=== PATIENT | female | born 1930 | race Caucasian/White ===

== ENCOUNTER 2019-04-19 11:12 | Inpatient (IN) | payer MEDICARE, OTHER ==
[~2019-04-19] VITALS: Ht 165.1 cm; Wt 70.9 kg
[~2019-04-19 11:12] MED LIST: ERGO500014 PO; PRAM0.129 PO; SULF-14 PO; TRIA1TAB3 PO
[2019-04-19] MEDS ORDERED: fentaNYL/PF 50MCG/1 ML 2ML syringe IV ONE (12:15)
[2019-04-19 12:36] LABS: BASOPHILS # (AUTO) 0.1 X10'3 (0-0.2); BASOPHILS % (AUTO) 1.2 % (0-1); EOSINOPHILS # (AUTO) 0.1 X10'3 (0-0.9); EOSINOPHILS % (AUTO) 1.3 % (0-6); HEMATOCRIT 34.1 % (35.0-45.0); HEMOGLOBIN 11.2 g/dl (12.0-16.0); LYMPHOCYTES % (AUTO) 13.3 % (21-51); MEAN CORPUSCULAR HEMOGLOBIN 29.9 PG (27.0-31.0); MEAN CORPUSCULAR HGB CONC 32.8 g/dL (33.0-36.5); MEAN CORPUSCULAR VOLUME 91.1 FL (78-98); MEAN PLATELET VOLUME 8.6 FL (7.4-10.4); MONOCYTES # (AUTO) 0.4 X10'3 (0-0.9); MONOCYTES % (AUTO) 5.7 % (2-12); NEUTROPHILS # (AUTO) 5.8 X10'3 (1.8-7.7); NEUTROPHILS % (AUTO) 78.5 % (42-75); PLATELET COUNT 196 X10'3 (140-440); RED BLOOD COUNT 3.74 X10'6 (4.20-5.60); RED CELL DISTRIBUTION WIDTH 15.1 % (11.5-14.5); WHITE BLOOD COUNT 7.4 X10'3 (4.5-11.0)
[2019-04-19 12:49] LABS: ALANINE AMINOTRANSFERASE 13 U/L (12-78); ALBUMIN 3.1 G/DL (3.4-5.0); ALBUMIN/GLOBULIN RATIO 0.9 (1.1-1.5); ALKALINE PHOSPHATASE 77 IU/L (46-116); ANION GAP 6 (8-16); ASPARTATE AMINO TRANSFERASE 14 U/L (10-37); BILIRUBIN,TOTAL 0.7 MG/DL (0.1-1.0); BLOOD UREA NITROGEN 16 MG/DL (7-18); BUN/CREATININE RATIO 15.8 (6.6-38.0); CALCIUM 10.5 MG/DL (8.5-10.1); CHLORIDE 109 MMOL/L (99-107); CREATININE 1.01 MG/DL (0.40-0.90); GLUCOSE 106 MG/DL (70-104); POTASSIUM 3.7 MMOL/L (3.5-5.1); SODIUM 145 MMOL/L (135-145); TOTAL CARBON DIOXIDE 29.9 MMOL/L (24-32); TOTAL PROTEIN 6.7 G/DL (6.4-8.2); eGFR 52 ML/MIN
--- NOTE | 2019-04-19 12:58 | NUR ---
pt to ct
[2019-04-19] MEDS ORDERED: mag hydrox/Alum hydrox/simeth 30ml oral suspension PO PRN (14:05)
[2019-04-19] MEDS ORDERED: ondansetron/PF 4mg/2ml inj IV PRN (14:05)
[2019-04-19] MEDS ORDERED: acetaminophen 325mg tablet PO PRN (14:05)
[2019-04-19] MEDS ORDERED: magnesium hydroxide 30ml (MOM) UD suspension PO PRN (14:05)
[2019-04-19 14:25] LABS: CLARITY,URINE CLOUDY (Clear); COLOR,URINE YELLOW (Yellow); GLUCOSE, URINE NEGATIVE (Neg); KETONES,URINE NEGATIVE (Neg); LEUKOCYTE ESTERASE ,URINE NEGATIVE (Neg); NITRITES, URINE NEGATIVE (Neg); OCCULT BLOOD,URINE NEGATIVE (Neg); PH,URINE 5.5 (4.8-8.0); PROTEIN,URINE NEGATIVE (Neg); UA COLLECTION TYPE FOLEY CATH; UROBILINOGEN,URINE 0.2 E.U/dL (0.2-1.0)
[2019-04-19] MEDS: normal saline 1000ml 1,000 ML IV SCH ×2 (14:35→15:33)
[2019-04-19 14:39] LABS: BACTERIA,URINE 4+ /HPF (Neg); MUCUS STRANDS NONE SEEN /LPF (Neg); RBC,URINE NONE SEEN /HPF (0-2); SQUAMOUS EPITHELIAL CELL,UR FEW /LPF (FEW); WBC CLUMPS,URINE FEW /HPF (NEGATIVE)
[2019-04-19 14:40] LABS: HYALINE CASTS 0-3 /LPF (NEGATIVE)
--- NOTE | 2019-04-19 14:47 | NUR ---
FAMILY WENT HOME TO GET PT'S MEDICATION LIST.
[2019-04-19] MEDS: HYDROcodone/acetaminophen 5mg/325mg tablet PO PRN ×2 (14:49→21:14)
[2019-04-19 15:42] VITALS: BP 139/77
[2019-04-19] MEDS ORDERED: ringers solution, lacted 1,000 ML IV ONE (16:19)
[2019-04-19] MEDS: HYDROmorphone inj. 0.5 MG/0.5 ML DISP.SYRIN IV PRN (17:06)
[2019-04-19 17:28] VITALS: BP 121/76
[2019-04-19 18:00] VITALS: BP 149/70
[2019-04-19] MEDS: heparin, porcine 5000 units/ml vial SQ SCH (20:48)
[2019-04-19 22:00] VITALS: BP 153/68
[2019-04-20] VITALS (15 sets, daily range): BP systolic 109–171; BP diastolic 48–70
[2019-04-20] MEDS: HYDROmorphone inj. 0.5 MG/0.5 ML DISP.SYRIN IV PRN ×3 (01:16→17:26)
[2019-04-20] MEDS: HYDROcodone/acetaminophen 5mg/325mg tablet PO PRN ×2 (03:52→15:12)
[2019-04-20] MEDS: normal saline 1000ml 1,000 ML IV SCH ×2 (03:53→13:15)
[2019-04-20 05:50] LABS: BASOPHILS # (AUTO) 0.1 X10'3 (0-0.2); BASOPHILS % (AUTO) 1.1 % (0-1); EOSINOPHILS # (AUTO) 0.1 X10'3 (0-0.9); EOSINOPHILS % (AUTO) 0.9 % (0-6); HEMATOCRIT 32.4 % (35.0-45.0); HEMOGLOBIN 10.8 g/dl (12.0-16.0); LYMPHOCYTES % (AUTO) 12.3 % (21-51); MEAN CORPUSCULAR HEMOGLOBIN 30.2 PG (27.0-31.0); MEAN CORPUSCULAR HGB CONC 33.2 g/dL (33.0-36.5); MEAN CORPUSCULAR VOLUME 91.1 FL (78-98); MEAN PLATELET VOLUME 8.9 FL (7.4-10.4); MONOCYTES # (AUTO) 0.7 X10'3 (0-0.9); NEUTROPHILS # (AUTO) 6.6 X10'3 (1.8-7.7); NEUTROPHILS % (AUTO) 77.7 % (42-75); PLATELET COUNT 195 X10'3 (140-440); RED BLOOD COUNT 3.56 X10'6 (4.20-5.60); WHITE BLOOD COUNT 8.5 X10'3 (4.5-11.0)
[2019-04-20 05:51] LABS: ALBUMIN 2.8 G/DL (3.4-5.0); ANION GAP 7 (8-16); BLOOD UREA NITROGEN 13 MG/DL (7-18); BUN/CREATININE RATIO 15.9 (6.6-38.0); CALCIUM 10.2 MG/DL (8.5-10.1); CHLORIDE 110 MMOL/L (99-107); CREATININE 0.82 MG/DL (0.40-0.90); GLUCOSE 106 MG/DL (70-104); POTASSIUM 3.6 MMOL/L (3.5-5.1); SODIUM 143 MMOL/L (135-145); TOTAL CARBON DIOXIDE 25.9 MMOL/L (24-32); eGFR 66 ML/MIN
--- NOTE | 2019-04-20 06:15 | NUR ---
Patient in room ORTHO 4023. I have received report from YANG KENNEDY and had the opportunity to ask questions and assume patient care.
--- NOTE | 2019-04-20 06:23 | NUR ---
Problems reprioritized. Patient report given, questions answered & plan of care reviewed with MARCIA ATKINSON.
[2019-04-20] MEDS: heparin, porcine 5000 units/ml vial SQ SCH (07:15)
[2019-04-20] MEDS ORDERED: POTA10TA15 PO (10:50)
[2019-04-20] MEDS ORDERED: ipratropium/albuterol 3ml nebule NEB PRN ×2 (10:50→10:53)
[2019-04-20] MEDS ORDERED: ASPI-611 PO (11:31)
[2019-04-20] MEDS ORDERED: MELA3TAB64 PO (11:32)
[2019-04-20] MEDS ORDERED: LOSA50TA64 PO (11:32)
[2019-04-20] MEDS ORDERED: PRAM0.253 PO (11:36)
[2019-04-20] MEDS ORDERED: ceFAZolin 1GM/D5W- ADD-VANTAGE 50 ML IV ONE (12:30)
--- NOTE | 2019-04-20 13:00 | NUR ---
PATIENT TO THE OR.
[2019-04-20] MEDS ORDERED: fentaNYL/PF 50MCG/1 ML 2ML syringe ONE (13:15)
[2019-04-20] MEDS ORDERED: propofol inj 20 ML IV ONE (13:15)
[2019-04-20] MEDS ORDERED: ePHEDrine 50MG/ML INJ. ONE (13:32)
[2019-04-20] MEDS ORDERED: ringers solution, lacted 1,000 ML IV SCH (13:41)
[2019-04-20] MEDS ORDERED: morphine 4 MG/ML inj SYRINge IV PRN ×2 (13:45)
[2019-04-20] MEDS ORDERED: proCHLORperazine 10 MG/2 ml inj IV PRN (13:45)
[2019-04-20] MEDS ORDERED: ondansetron/PF 4mg/2ml inj IV PRN (13:45)
[2019-04-20] MEDS ORDERED: meperidine/PF 25mg/ml syringe IV PRN ×3 (13:45)
--- NOTE | 2019-04-20 13:57 | NUR ---
Received from OR via ORTHO BED WITH [facility] , accompanied by Anesthesiologist ASHER and report given by Anesthesiolgist. 20G PIV IN LEFT UR RUNNING LR AT 100. DENIES PAIN. 10L MASK ON WITH 98% SATURATIONS. RIGHT HIP DRESSING IS SPOTTED ON BOTH SITES WITH COVERED OP SITE IN PLACE. RIGHT FOOT IS PWD AND HAS + CAP REFILL VSSGLASSES AT HEAD OF BED. Addendum: 04/20/19 at 1407 by Pramod Campuzano RN, RN Amended: Links added.
--- NOTE | 2019-04-20 13:58 | NUR ---
PAGER ID: [phone] MESSAGE: [place] [id number] RE: OLIVER [id number] FYI GRAM NEG RODS IN URINE
--- NOTE | 2019-04-20 14:27 | NUR ---
ALL CRITERIA FOR TRANSFER TO THE FLOOR HAS BEEN ACHIEVED. VSS. BED LOW, CALL LIGHT AND VS. SET IN PLACE. RN PRESENT TO ACCEPT CARE. PATIENT RESTING COMFORTABLY IN BED. BELONGINGS SENT WITH PATIENT. DRESSINGS CDI. VSS. DENIES PAIN. REPORT GIVEN TO SEJAL. PRINTED CIRCUIT BOARDS BEVELER TRANSPORTED PATIENT TO ROOM. Addendum: 04/20/19 at 1438 by Pramod Campuzano RN, RN Amended: Links added.
--- NOTE | 2019-04-20 14:30 | NUR ---
ASSUMED CARE, RECEIVED REPORT FROM RAUL KENNEDY, POST OP VITALS STARTED, PATIENT RESTING COMFORTABLY, FAMILY AT BEDSIDE.
--- NOTE | 2019-04-20 15:12 | NUR ---
SOME DRAINAGE ON GAUZE AT BOTH INCISION SITES. MARKED AND WILL CONTINUE TO MONITOR.
[2019-04-20] MEDS: ceFAZolin 1GM/D5W- ADD-VANTAGE 50 ML IV SCH (16:00)
--- NOTE | 2019-04-20 16:45 | NUR ---
FAMILY MEMBER REPORTS SURGERY DRESSING CAME OFF THAT IT WAS STUCK TO THE BED. REPLACED THE DRESSING IT WAS, GAUZE WITH TEGADERM. COLEMAN WERE INTACT, NO DRAINAGE. WILL CONTINUE TO MONITOR.
--- NOTE | 2019-04-20 18:00 | NUR ---
Problems reprioritized. Patient report given, questions answered & plan of care reviewed with YANG KENNEDY.
--- NOTE | 2019-04-20 18:37 | NUR ---
Patient in room ORTHO 4023. I have received report from MARCIA ATKINSON and had the opportunity to ask questions and assume patient care.
[2019-04-20] MEDS ORDERED: non-formulary drug (Aspirin (Aspir 81) 1 TAB) PO SCH (20:00)
[2019-04-20] MEDS: losartan 50mg tablet PO SCH (20:05)
[2019-04-20] MEDS: Melatonin 3mg tablet PO SCH (20:14)
[2019-04-20] MEDS: aspirin 81mg tablet.DR PO SCH (20:14)
[2019-04-20] MEDS: pramipexole 0.25mg tablet PO SCH (20:15)
[2019-04-21] MEDS: ceFAZolin 1GM/D5W- ADD-VANTAGE 50 ML IV SCH (00:51)
[2019-04-21 01:52] VITALS: BP 108/53
[2019-04-21] MEDS: HYDROcodone/acetaminophen 5mg/325mg tablet PO PRN (05:27)
[2019-04-21 06:00] VITALS: BP 111/56
[2019-04-21 06:04] LABS: BASOPHILS # (AUTO) 0.1 X10'3 (0-0.2); BASOPHILS % (AUTO) 0.7 % (0-1); EOSINOPHILS # (AUTO) 0.1 X10'3 (0-0.9); EOSINOPHILS % (AUTO) 1.5 % (0-6); HEMATOCRIT 28.8 % (35.0-45.0); HEMOGLOBIN 9.6 g/dl (12.0-16.0); LYMPHOCYTES # (AUTO) 0.9 X10'3 (1.1-4.8); LYMPHOCYTES % (AUTO) 9.4 % (21-51); MEAN CORPUSCULAR HEMOGLOBIN 30.4 PG (27.0-31.0); MEAN CORPUSCULAR HGB CONC 33.3 g/dL (33.0-36.5); MEAN CORPUSCULAR VOLUME 91.3 FL (78-98); MEAN PLATELET VOLUME 8.7 FL (7.4-10.4); MONOCYTES % (AUTO) 9.9 % (2-12); NEUTROPHILS # (AUTO) 7.8 X10'3 (1.8-7.7); NEUTROPHILS % (AUTO) 78.5 % (42-75); PLATELET COUNT 175 X10'3 (140-440); RED BLOOD COUNT 3.15 X10'6 (4.20-5.60); RED CELL DISTRIBUTION WIDTH 14.8 % (11.5-14.5); WHITE BLOOD COUNT 9.9 X10'3 (4.5-11.0)
[2019-04-21 06:20] LABS: ALBUMIN 2.5 G/DL (3.4-5.0); ANION GAP 6 (8-16); BLOOD UREA NITROGEN 14 MG/DL (7-18); BUN/CREATININE RATIO 14.1 (6.6-38.0); CALCIUM 9.8 MG/DL (8.5-10.1); CHLORIDE 108 MMOL/L (99-107); CREATININE 0.99 MG/DL (0.40-0.90); GLUCOSE 110 MG/DL (70-104); POTASSIUM 3.5 MMOL/L (3.5-5.1); SODIUM 142 MMOL/L (135-145); eGFR 53 ML/MIN
--- NOTE | 2019-04-21 06:36 | NUR ---
Problems reprioritized. Patient report given, questions answered & plan of care reviewed with MARCIA FOURNIER.
[2019-04-21] MEDS: enoxaparin 40mg/0.4ml syringe SQ SCH (09:18)
[2019-04-21 10:00] VITALS: BP 94/47
[2019-04-21] MEDS: ciprofloxacin 250mg tablet PO SCH ×2 (12:17→19:46)
[2019-04-21 14:00] VITALS: BP 98/49
[2019-04-21 18:00] VITALS: BP 90/51
[2019-04-21] MEDS: pramipexole 0.25mg tablet PO SCH (19:45)
[2019-04-21] MEDS: aspirin 81mg tablet.DR PO SCH (19:45)
[2019-04-21] MEDS: Melatonin 3mg tablet PO SCH (19:46)
[2019-04-21] MEDS: lactobacillus rhamnosus 10,000 MMU CELLS/CAPSULE PO SCH (19:46)
[2019-04-21] MEDS: losartan 50mg tablet PO SCH (19:54)
[2019-04-21 22:00] VITALS: BP 101/55
[2019-04-22] MEDS: HYDROcodone/acetaminophen 5mg/325mg tablet PO PRN ×2 (04:48→13:32)
[2019-04-22 06:00] VITALS: BP 111/57
[2019-04-22 06:34] LABS: BASOPHILS # (AUTO) 0.1 X10'3 (0-0.2); BASOPHILS % (AUTO) 0.5 % (0-1); EOSINOPHILS # (AUTO) 0.1 X10'3 (0-0.9); EOSINOPHILS % (AUTO) 1.2 % (0-6); HEMATOCRIT 26.1 % (35.0-45.0); HEMOGLOBIN 8.7 g/dl (12.0-16.0); LYMPHOCYTES # (AUTO) 0.8 X10'3 (1.1-4.8); LYMPHOCYTES % (AUTO) 8.7 % (21-51); MEAN CORPUSCULAR HEMOGLOBIN 30.4 PG (27.0-31.0); MEAN CORPUSCULAR HGB CONC 33.1 g/dL (33.0-36.5); MEAN CORPUSCULAR VOLUME 91.7 FL (78-98); MEAN PLATELET VOLUME 9.2 FL (7.4-10.4); MONOCYTES # (AUTO) 0.9 X10'3 (0-0.9); MONOCYTES % (AUTO) 9.5 % (2-12); NEUTROPHILS # (AUTO) 7.8 X10'3 (1.8-7.7); NEUTROPHILS % (AUTO) 80.1 % (42-75); PLATELET COUNT 167 X10'3 (140-440); RED BLOOD COUNT 2.85 X10'6 (4.20-5.60); RED CELL DISTRIBUTION WIDTH 14.7 % (11.5-14.5); WHITE BLOOD COUNT 9.7 X10'3 (4.5-11.0)
--- NOTE | 2019-04-22 06:35 | NUR ---
Problems reprioritized. Patient report given, questions answered & plan of care reviewed with MARCIA MCDONOUGH.
[2019-04-22 06:41] LABS: ALBUMIN 2.3 G/DL (3.4-5.0); ANION GAP 6 (8-16); BLOOD UREA NITROGEN 20 MG/DL (7-18); BUN/CREATININE RATIO 16.3 (6.6-38.0); CALCIUM 10.3 MG/DL (8.5-10.1); CHLORIDE 108 MMOL/L (99-107); CREATININE 1.23 MG/DL (0.40-0.90); GLUCOSE 106 MG/DL (70-104); POTASSIUM 3.9 MMOL/L (3.5-5.1); SODIUM 142 MMOL/L (135-145); TOTAL CARBON DIOXIDE 27.9 MMOL/L (24-32); eGFR 41 ML/MIN
--- NOTE | 2019-04-22 06:53 | NUR ---
Patient in room ORTHO 4023. I have received report from Amanda KENNEDY and had the opportunity to ask questions and assume patient care.
[2019-04-22] MEDS: enoxaparin 40mg/0.4ml syringe SQ SCH (08:09)
[2019-04-22] MEDS: lactobacillus rhamnosus 10,000 MMU CELLS/CAPSULE PO SCH (08:10)
[2019-04-22] MEDS: ciprofloxacin 250mg tablet PO SCH (08:10)
[2019-04-22 09:53] VITALS: BP 109/46
--- NOTE | 2019-04-22 12:59 | NUR ---
Report called to Yas KENNEDY at [facility]
[2019-04-22] MEDS: normal saline 1000ml 1,000 ML IV SCH (13:15)
--- NOTE | 2019-04-22 14:00 | NUR ---
Patient discharged with all belongings via medical transport, family at bedside and was aware of transfer, patient stable for transport
== END 2019-04-22 14:00 | DRG 481 ==
LOC: ER 11:12 → ORTHO 4S 15:00 → CMPBEDREQ 04-20 19:57
PROVIDERS: ADMIT Family Medicine; ATTEND Family Medicine
PROC: 0QS606Z Reposition Right Upper Femur with Intramedullary Internal Fixation Device, Open Approach (ICD-10-PCS; principal; 2019-04-20 13:12)
DX: S72.141A Displaced intertrochanteric fracture of right femur, initial encounter for closed fracture (principal); N39.0 Urinary tract infection, site not specified; D62 Acute posthemorrhagic anemia; M81.0 Age-related osteoporosis without current pathological fracture; W01.0XXA Fall on same level from slipping, tripping and stumbling without subsequent striking against object, initial encounter; G25.81 Restless legs syndrome; J43.9 Emphysema, unspecified; B96.20 Unspecified Escherichia coli [E. coli] as the cause of diseases classified elsewhere; I10 Essential (primary) hypertension; F17.210 Nicotine dependence, cigarettes, uncomplicated; Z86.73 Personal history of transient ischemic attack (TIA), and cerebral infarction without residual deficits; Z90.710 Acquired absence of both cervix and uterus; Y93.89 Activity, other specified; Y92.89 Other specified places as the place of occurrence of the external cause; Y99.8 Other external cause status; Z88.5 Allergy status to narcotic agent; Z90.49 Acquired absence of other specified parts of digestive tract; Z79.82 Long term (current) use of aspirin; Z71.6 Tobacco abuse counseling
CPT/HCPCS: 36415; 71045; 71250; 73502; 76000; 80048; 80053; 81001; 82948; 85025; 85610; 87077; 87081; 87088; 87186; 93005; 94640; 94760; 96361; 96374; 97110; 97116; 97161; 97530; 99285; A4618; A6222; A6258; A6449; A7000; C1713; G0378; J0690; J1170; J1644; J1650; J2405; J2704; J3010; J7030; J7120

== ENCOUNTER 2019-07-07 18:23 | Inpatient (IN) | payer MEDICARE, OTHER ==
[~2019-07-07] VITALS: Ht 165.1 cm; Wt 67.7 kg
[~2019-07-07 18:23] MED LIST changes: +ASPI-611 PO; -ERGO500014 PO; +LOSA50TA64 PO; +MELA3TAB64 PO; -PRAM0.129 PO; +PRAM0.253 PO; -SULF-14 PO; -TRIA1TAB3 PO
[2019-07-07] MEDS ORDERED: ipratropium/albuterol 3ml nebule NEB ONE (18:35)
[2019-07-07] MEDS ORDERED: normal saline 1000ML IV soln IVB ONE (18:35)
[2019-07-07] MEDS ORDERED: methylPREDNISolone sod succ 125mg/2ml vial IV ONE (18:35)
[2019-07-07] MEDS ORDERED: azithromycin/NS 500mg/250ml 250 ML IV ONE (18:50)
[2019-07-07] MEDS ORDERED: CefTRIAXone 2gm/D5W 50ml 50 ML IV ONE (18:50)
[2019-07-07 19:01] LABS: ABG BASE EXCESS 3.9 mmol/L (-2.0-3.0); ABG HCO3 30.7 mmol/L (22.0-26.0); ABG OXYGEN SATURATION 98.5 % (95-98); ABG PH (T) 7.343 (7.350-7.450); ABG PO2 (T) 135.4 mmHg (83-108); ALLEN'S TEST Positive; FCOHb 1.1 % (0.5-1.5); FLOW 6 L/min; FMetHb 0.2 % (0.3-1.12); FO2Hb 97.2 % (94-100); PATIENT TEMPERATURE 37.3; TOTAL HEMOGLOBIN 11.4 G/dl (12.0-16.0)
[2019-07-07 19:07] LABS: BASOPHILS # (AUTO) 0.1 X10'3 (0-0.2); BASOPHILS % (AUTO) 0.6 % (0-1); EOSINOPHILS # (AUTO) 0.2 X10'3 (0-0.9); EOSINOPHILS % (AUTO) 1.3 % (0-6); HEMATOCRIT 32.9 % (35.0-45.0); HEMOGLOBIN 10.7 g/dl (12.0-16.0); LYMPHOCYTES # (AUTO) 1.8 X10'3 (1.1-4.8); LYMPHOCYTES % (AUTO) 15.8 % (21-51); MEAN CORPUSCULAR HEMOGLOBIN 29.2 PG (27.0-31.0); MEAN CORPUSCULAR HGB CONC 32.4 g/dL (33.0-36.5); MEAN CORPUSCULAR VOLUME 90.2 FL (78-98); MEAN PLATELET VOLUME 8.8 FL (7.4-10.4); MONOCYTES # (AUTO) 0.8 X10'3 (0-0.9); MONOCYTES % (AUTO) 6.9 % (2-12); NEUTROPHILS # (AUTO) 8.5 X10'3 (1.8-7.7); NEUTROPHILS % (AUTO) 75.4 % (42-75); PLATELET COUNT 256 X10'3 (140-440); RED BLOOD COUNT 3.65 X10'6 (4.20-5.60); RED CELL DISTRIBUTION WIDTH 14.4 % (11.5-14.5); WHITE BLOOD COUNT 11.3 X10'3 (4.5-11.0)
[2019-07-07 19:14] LABS: ALANINE AMINOTRANSFERASE 13 U/L (12-78); ALBUMIN 3.2 G/DL (3.4-5.0); ALBUMIN/GLOBULIN RATIO 0.8 (1.1-1.5); ALKALINE PHOSPHATASE 118 IU/L (46-116); ANION GAP 8 (8-16); ASPARTATE AMINO TRANSFERASE 14 U/L (10-37); BILIRUBIN,TOTAL 0.5 MG/DL (0.1-1.0); BLOOD UREA NITROGEN 14 MG/DL (7-18); BUN/CREATININE RATIO 14.7 (6.6-38.0); CALCIUM 11.1 MG/DL (8.5-10.1); CHLORIDE 103 MMOL/L (99-107); CREATININE 0.95 MG/DL (0.40-0.90); GLUCOSE 151 MG/DL (70-104); POTASSIUM 3.4 MMOL/L (3.5-5.1); SODIUM 142 MMOL/L (135-145); TOTAL CARBON DIOXIDE 30.7 MMOL/L (24-32); TOTAL PROTEIN 7.4 G/DL (6.4-8.2); eGFR 56 ML/MIN
[2019-07-07] MEDS ORDERED: acetaminophen 325mg tablet PO PRN (19:30)
[2019-07-07] MEDS ORDERED: magnesium hydroxide 30ml (MOM) UD suspension PO PRN (19:30)
[2019-07-07] MEDS ORDERED: morphine 2 MG/ML inj. syringe IV PRN ×2 (19:30)
[2019-07-07] MEDS ORDERED: ondansetron/PF 4mg/2ml inj IV PRN (19:30)
[2019-07-07] MEDS ORDERED: mag hydrox/Alum hydrox/simeth 30ml oral suspension PO PRN (19:30)
[2019-07-07 21:00] VITALS: BP 122/56
[2019-07-07] MEDS ORDERED: PRAM0.129 PO (21:39)
--- NOTE | 2019-07-07 22:24 | NUR ---
Patient in room JOSE 357. I have received report from MARCIA Hollingsworth and had the opportunity to ask questions and assume patient care. Addendum: 07/07/19 at 2225 by Iman Sanderson RN Amended: Links added.
--- NOTE | 2019-07-07 22:36 | NUR ---
Patient in room JOSE 357. I have received report from MARCIA Becerra and had the opportunity to ask questions and assume patient care. Pt. brought up by roro by staff. Pt soaking wet with urine upon arrival to unit. Addendum: 07/07/19 at 2238 by Iman Sanderson RN Amended: Links added.
[2019-07-08] VITALS: BP 112/54
--- NOTE | 2019-07-08 01:14 | NUR ---
large amount of incontinent urine. adult diaper soaked through clothes and bed. Addendum: 07/08/19 at 0115 by Iman Sanderson RN Amended: Links added.
--- NOTE | 2019-07-08 06:22 | NUR ---
Problems reprioritized. Patient report given, questions answered & plan of care reviewed with MARCIA Elizalde. Addendum: 07/08/19 at 0622 by Iman Sanderson RN Amended: Links added.
[2019-07-08 06:23] LABS: BASOPHILS % (AUTO) 0.1 % (0-1); EOSINOPHILS % (AUTO) 0 % (0-6); HEMATOCRIT 29.5 % (35.0-45.0); HEMOGLOBIN 9.6 g/dl (12.0-16.0); LYMPHOCYTES # (AUTO) 0.5 X10'3 (1.1-4.8); LYMPHOCYTES % (AUTO) 3.9 % (21-51); MEAN CORPUSCULAR HEMOGLOBIN 29.3 PG (27.0-31.0); MEAN CORPUSCULAR HGB CONC 32.7 g/dL (33.0-36.5); MEAN CORPUSCULAR VOLUME 89.6 FL (78-98); MONOCYTES # (AUTO) 0.1 X10'3 (0-0.9); MONOCYTES % (AUTO) 0.6 % (2-12); NEUTROPHILS # (AUTO) 12.4 X10'3 (1.8-7.7); NEUTROPHILS % (AUTO) 95.4 % (42-75); PLATELET COUNT 215 X10'3 (140-440); RED BLOOD COUNT 3.29 X10'6 (4.20-5.60); RED CELL DISTRIBUTION WIDTH 14.1 % (11.5-14.5)
[2019-07-08 06:40] LABS: ALBUMIN 2.7 G/DL (3.4-5.0); ANION GAP 9 (8-16); BLOOD UREA NITROGEN 14 MG/DL (7-18); BUN/CREATININE RATIO 19.2 (6.6-38.0); CALCIUM 11.4 MG/DL (8.5-10.1); CHLORIDE 107 MMOL/L (99-107); CREATININE 0.73 MG/DL (0.40-0.90); GLUCOSE 160 MG/DL (70-104); POTASSIUM 4.1 MMOL/L (3.5-5.1); SODIUM 143 MMOL/L (135-145); TOTAL CARBON DIOXIDE 27.1 MMOL/L (24-32); eGFR 75 ML/MIN
[2019-07-08 08:00] VITALS: BP 123/54
[2019-07-08] MEDS ORDERED: pramipexole 0.25mg tablet PO SCH (08:00)
[2019-07-08] MEDS: furosemide 20MG tablet PO SCH (08:45)
[2019-07-08] MEDS: methylPREDNISolone sod succ 125mg/2ml vial IV SCH ×2 (08:46→22:00)
[2019-07-08] MEDS: enoxaparin 40mg/0.4ml syringe SUBCUT SCH (08:48)
[2019-07-08 11:00] VITALS: BP 142/64
[2019-07-08] MEDS: CefTRIAXone/D5W-Rocephin 1gm 50 ML IV SCH (12:20)
--- NOTE | 2019-07-08 18:58 | NUR ---
Patient in room JOSE 357. I have received report from MARCIA Elizalde and had the opportunity to ask questions and assume patient care.
--- NOTE | 2019-07-08 19:24 | NUR ---
Problems reprioritized. Patient report given, questions answered & plan of care reviewed with Anastacia Martin RN. Pt doing well, eating dinner, no current issues.
[2019-07-08 20:00] VITALS: BP 141/63
[2019-07-08] MEDS: losartan 50mg tablet PO SCH (22:01)
[2019-07-08] MEDS: Melatonin 3mg tablet PO SCH (22:01)
[2019-07-08] MEDS: pramipexole 0.25mg tablet PO SCH (22:02)
[2019-07-08] MEDS: aspirin 81mg tab.chew PO SCH (22:02)
[2019-07-09] VITALS: BP 135/69
[2019-07-09 06:08] LABS: BASOPHILS % (AUTO) 0.2 % (0-1); EOSINOPHILS % (AUTO) 0 % (0-6); HEMATOCRIT 30.4 % (35.0-45.0); LYMPHOCYTES # (AUTO) 0.7 X10'3 (1.1-4.8); LYMPHOCYTES % (AUTO) 5.5 % (21-51); MEAN CORPUSCULAR HEMOGLOBIN 29.4 PG (27.0-31.0); MONOCYTES # (AUTO) 0.3 X10'3 (0-0.9); MONOCYTES % (AUTO) 1.9 % (2-12); NEUTROPHILS # (AUTO) 12.6 X10'3 (1.8-7.7); NEUTROPHILS % (AUTO) 92.4 % (42-75); PLATELET COUNT 262 X10'3 (140-440); RED BLOOD COUNT 3.42 X10'6 (4.20-5.60); RED CELL DISTRIBUTION WIDTH 13.7 % (11.5-14.5); WHITE BLOOD COUNT 13.6 X10'3 (4.5-11.0)
--- NOTE | 2019-07-09 06:34 | NUR ---
Problems reprioritized. Patient report given, questions answered & plan of care reviewed with MARCIA Johnson.
--- NOTE | 2019-07-09 06:40 | NUR ---
Patient in room JOSE 357. I have received report from SELENA KENNEDY and had the opportunity to ask questions and assume patient care.
[2019-07-09 06:57] LABS: ALBUMIN 2.7 G/DL (3.4-5.0); ANION GAP 4 (8-16); BLOOD UREA NITROGEN 21 MG/DL (7-18); BUN/CREATININE RATIO 27.3 (6.6-38.0); CALCIUM 11.2 MG/DL (8.5-10.1); CHLORIDE 106 MMOL/L (99-107); CREATININE 0.77 MG/DL (0.40-0.90); GLUCOSE 144 MG/DL (70-104); POTASSIUM 4.4 MMOL/L (3.5-5.1); SODIUM 142 MMOL/L (135-145); TOTAL CARBON DIOXIDE 31.8 MMOL/L (24-32); eGFR 71 ML/MIN
[2019-07-09 07:00] LABS: D-DIMER 1.83 MG/L FEU (0-0.50)
[2019-07-09] MEDS: CefTRIAXone/D5W-Rocephin 1gm 50 ML IV SCH (07:52)
[2019-07-09] MEDS: furosemide 20MG tablet PO SCH (07:53)
[2019-07-09] MEDS: methylPREDNISolone sod succ 125mg/2ml vial IV SCH ×2 (07:53→20:11)
[2019-07-09] MEDS: enoxaparin 40mg/0.4ml syringe SUBCUT SCH (07:54)
[2019-07-09 08:15] VITALS: BP 129/61
--- NOTE | 2019-07-09 10:12 | NUR ---
wheezes audible when patient is sitting up and after coughing
--- NOTE | 2019-07-09 10:14 | NUR ---
Patient unsure of LBM, daughter states 07/06.
--- NOTE | 2019-07-09 10:23 | NUR ---
Patient unsure of oswaldo SQUIRES reports 07/06. Addendum: 07/09/19 at 1030 by Arlene BRUCE Amended: Links added.
--- NOTE | 2019-07-09 10:24 | NUR ---
chilo petersenck in place Addendum: 07/09/19 at 1030 by Arlene BRUCE Amended: Links added.
[2019-07-09] MEDS ORDERED: iohexol 350MG/ML 100ml bottle IV ONE (10:34)
[2019-07-09 11:00] VITALS: BP 149/70
--- NOTE | 2019-07-09 12:00 | NUR ---
Patient in room JOSE 357. I have received report from and had the opportunity to ask questions and assume patient care.
[2019-07-09 13:21] VITALS: BP 149/70
--- NOTE | 2019-07-09 18:05 | NUR ---
Patient in room JOSE 357. I have received report from Elizabeth KENNEDY and had the opportunity to ask questions and assume patient care.
--- NOTE | 2019-07-09 18:31 | NUR ---
PATIENT WENT FOR CTA today, see report. appears more comfortable. all cares given. Report given to Kartik KENNEDY
[2019-07-09 20:00] VITALS: BP 130/80
[2019-07-09] MEDS: aspirin 81mg tab.chew PO SCH (20:09)
[2019-07-09] MEDS: Melatonin 3mg tablet PO SCH (20:09)
[2019-07-09] MEDS: losartan 50mg tablet PO SCH (20:09)
[2019-07-09] MEDS: lactobacillus rhamnosus 10,000 MMU CELLS/CAPSULE PO SCH (20:09)
[2019-07-09] MEDS: pramipexole 0.25mg tablet PO SCH (20:16)
[2019-07-10] VITALS: BP 136/61
[2019-07-10 05:42] LABS: BASOPHILS % (AUTO) 0 % (0-1); EOSINOPHILS % (AUTO) 0 % (0-6); HEMATOCRIT 33.6 % (35.0-45.0); HEMOGLOBIN 10.9 g/dl (12.0-16.0); LYMPHOCYTES # (AUTO) 0.6 X10'3 (1.1-4.8); LYMPHOCYTES % (AUTO) 5.5 % (21-51); MEAN CORPUSCULAR HEMOGLOBIN 29.2 PG (27.0-31.0); MEAN CORPUSCULAR HGB CONC 32.5 g/dL (33.0-36.5); MEAN CORPUSCULAR VOLUME 89.9 FL (78-98); MEAN PLATELET VOLUME 8.8 FL (7.4-10.4); MONOCYTES # (AUTO) 0.2 X10'3 (0-0.9); MONOCYTES % (AUTO) 1.9 % (2-12); NEUTROPHILS # (AUTO) 10.3 X10'3 (1.8-7.7); NEUTROPHILS % (AUTO) 92.6 % (42-75); PLATELET COUNT 276 X10'3 (140-440); RED BLOOD COUNT 3.74 X10'6 (4.20-5.60); RED CELL DISTRIBUTION WIDTH 13.9 % (11.5-14.5); WHITE BLOOD COUNT 11.1 X10'3 (4.5-11.0)
[2019-07-10 05:49] LABS: ALBUMIN 2.7 G/DL (3.4-5.0); ANION GAP 1 (8-16); BLOOD UREA NITROGEN 23 MG/DL (7-18); CALCIUM 10.9 MG/DL (8.5-10.1); CHLORIDE 105 MMOL/L (99-107); CREATININE 0.82 MG/DL (0.40-0.90); GLUCOSE 139 MG/DL (70-104); POTASSIUM 4.5 MMOL/L (3.5-5.1); SODIUM 142 MMOL/L (135-145); TOTAL CARBON DIOXIDE 35.7 MMOL/L (24-32); eGFR 66 ML/MIN
--- NOTE | 2019-07-10 06:21 | NUR ---
Problems reprioritized. Patient report given, questions answered & plan of care reviewed with Aleah KENNEDY.
--- NOTE | 2019-07-10 06:31 | NUR ---
Change of shift Patient in room JOSE 357. I have received report from MARCIA Verdugo and had the opportunity to ask questions and assume patient care.
[2019-07-10 06:54] VITALS: BP 148/73
[2019-07-10] MEDS: CefTRIAXone/D5W-Rocephin 1gm 50 ML IV SCH (07:56)
[2019-07-10] MEDS: methylPREDNISolone sod succ 125mg/2ml vial IV SCH (07:59)
[2019-07-10] MEDS: lactobacillus rhamnosus 10,000 MMU CELLS/CAPSULE PO SCH (08:00)
[2019-07-10] MEDS: furosemide 20MG tablet PO SCH (08:00)
[2019-07-10] MEDS: enoxaparin 40mg/0.4ml syringe SUBCUT SCH (08:00)
[2019-07-10] MEDS ORDERED: AMOX-422 PO (10:22)
[2019-07-10] MEDS ORDERED: PRED20TA PO (10:22)
[2019-07-10] MEDS ORDERED: FURO20TA4 PO (10:22)
[2019-07-10 11:00] VITALS: BP 115/70
--- NOTE | 2019-07-10 13:17 | NUR ---
DISCHARGE NOTE: PATIENT STABLE AND APPROPRIATE FOR DISCHARGE, EDUCATION GIVEN, IV TAKEN OUT, ALL BELONGINGS SENT WITH PATIENT, PATIENT TAKEN TO LOBBY IN WHEEL CHAIR TO AN AWAITING CAR WHERE DAUGHTER WILL TAKE HOME
== END 2019-07-10 13:24 | disposition home health service (06) | DRG 291 ==
LOC: ER 18:24 → ED HOLD 20:09 → SUR 3N 21:00
PROVIDERS: ADMIT Internal Medicine; ATTEND Family Medicine
PROC: B32T1ZZ Computerized Tomography (CT Scan) of Left Pulmonary Artery using Low Osmolar Contrast (ICD-10-PCS; principal; 2019-07-09)
PROC: B3201ZZ Computerized Tomography (CT Scan) of Thoracic Aorta using Low Osmolar Contrast (ICD-10-PCS; 2019-07-09)
PROC: B32S1ZZ Computerized Tomography (CT Scan) of Right Pulmonary Artery using Low Osmolar Contrast (ICD-10-PCS; 2019-07-09)
DX: I11.0 Hypertensive heart disease with heart failure (principal); J18.9 Pneumonia, unspecified organism; J96.21 Acute and chronic respiratory failure with hypoxia; I50.31 Acute diastolic (congestive) heart failure; G93.40 Encephalopathy, unspecified; D64.9 Anemia, unspecified; E83.52 Hypercalcemia; F17.210 Nicotine dependence, cigarettes, uncomplicated; G25.81 Restless legs syndrome; J42 Unspecified chronic bronchitis; G47.00 Insomnia, unspecified; R01.1 Cardiac murmur, unspecified; J43.9 Emphysema, unspecified; M81.0 Age-related osteoporosis without current pathological fracture; Z86.73 Personal history of transient ischemic attack (TIA), and cerebral infarction without residual deficits; Z90.710 Acquired absence of both cervix and uterus; Z99.81 Dependence on supplemental oxygen; Z88.5 Allergy status to narcotic agent; Z79.899 Other long term (current) drug therapy; Z79.82 Long term (current) use of aspirin
CPT/HCPCS: 36415; 36600; 71045; 71275; 80048; 80053; 82803; 83605; 83880; 84443; 84484; 85018; 85025; 85379; 87040; 87070; 87081; 93005; 93306; 94640; 94760; 96365; 96368; 97116; 97161; 97530; 99285; G0378; J0456; J0696; J1650; J2930; Q9967

== ENCOUNTER 2019-07-28 10:51 | Inpatient (IN) | payer MEDICARE, OTHER ==
[~2019-07-28] VITALS: Ht 162.6 cm; Wt 69.1 kg
[~2019-07-28 10:51] MED LIST changes: +AMOX-422 PO; +FURO20TA4 PO; +PRAM0.129 PO; -PRAM0.253 PO; +PRED20TA PO
[2019-07-28 11:34] LABS: BASOPHILS # (AUTO) 0.1 X10'3 (0-0.2); BASOPHILS % (AUTO) 1.3 % (0-1); EOSINOPHILS # (AUTO) 0.2 X10'3 (0-0.9); EOSINOPHILS % (AUTO) 3.3 % (0-6); HEMATOCRIT 31.8 % (35.0-45.0); HEMOGLOBIN 10.5 g/dl (12.0-16.0); LYMPHOCYTES # (AUTO) 1.1 X10'3 (1.1-4.8); LYMPHOCYTES % (AUTO) 19.1 % (21-51); MEAN CORPUSCULAR HEMOGLOBIN 29.3 PG (27.0-31.0); MEAN CORPUSCULAR HGB CONC 32.8 g/dL (33.0-36.5); MEAN CORPUSCULAR VOLUME 89.1 FL (78-98); MEAN PLATELET VOLUME 7.9 FL (7.4-10.4); MONOCYTES # (AUTO) 0.4 X10'3 (0-0.9); MONOCYTES % (AUTO) 6.5 % (2-12); NEUTROPHILS # (AUTO) 4.1 X10'3 (1.8-7.7); NEUTROPHILS % (AUTO) 69.8 % (42-75); PLATELET COUNT 224 X10'3 (140-440); RED BLOOD COUNT 3.57 X10'6 (4.20-5.60); RED CELL DISTRIBUTION WIDTH 14.9 % (11.5-14.5); WHITE BLOOD COUNT 5.9 X10'3 (4.5-11.0)
[2019-07-28 11:43] LABS: PARTIAL THROMBOPLASTIN TIME 23 SECONDS (22-32)
[2019-07-28 11:46] LABS: ALANINE AMINOTRANSFERASE 17 U/L (12-78); ALBUMIN/GLOBULIN RATIO 0.8 (1.1-1.5); ALKALINE PHOSPHATASE 104 IU/L (46-116); ASPARTATE AMINO TRANSFERASE 16 U/L (10-37); BILIRUBIN,TOTAL 0.6 MG/DL (0.1-1.0); BLOOD UREA NITROGEN 10 MG/DL (7-18); BUN/CREATININE RATIO 10.3 (6.6-38.0); CALCIUM 10.9 MG/DL (8.5-10.1); CHLORIDE 107 MMOL/L (99-107); CREATININE 0.97 MG/DL (0.40-0.90); GLUCOSE 112 MG/DL (70-104); POTASSIUM 4.1 MMOL/L (3.5-5.1); TOTAL CARBON DIOXIDE 32.6 MMOL/L (24-32); TOTAL PROTEIN 6.9 G/DL (6.4-8.2); eGFR 54 ML/MIN
[2019-07-28 11:50] LABS: ANION GAP 4 (8-16); SODIUM 144 MMOL/L (135-145)
[2019-07-28] MEDS ORDERED: aspirin 81mg tab.chew PO ONE (12:15)
[2019-07-28] MEDS ORDERED: HYDROcodone/acetaminophen 5mg/325mg tablet PO PRN (13:00)
[2019-07-28] MEDS ORDERED: morphine 2 MG/ML inj. syringe IV PRN ×2 (13:00)
[2019-07-28] MEDS ORDERED: nitroGLYCERIN 0.4mg SUBLingual tab SL PRN (13:00)
[2019-07-28] MEDS ORDERED: acetaminophen 325mg tablet PO PRN ×2 (13:00)
[2019-07-28] MEDS ORDERED: magnesium hydroxide 30ml (MOM) UD suspension PO PRN (13:00)
[2019-07-28] MEDS ORDERED: mag hydrox/Alum hydrox/simeth 30ml oral suspension PO PRN (13:00)
[2019-07-28] MEDS ORDERED: ondansetron/PF 4mg/2ml inj IV PRN (13:00)
[2019-07-28] MEDS ORDERED: MULT-933 PO (13:01)
[2019-07-28] MEDS ORDERED: FURO20TA4 PO (13:02)
[2019-07-28] MEDS ORDERED: enoxaparin 100mg/ml syringe SUBCUT SCH (13:20)
[2019-07-28 13:23] LABS: D-DIMER 3.88 MG/L FEU (0-0.50)
[2019-07-28 13:27] LABS: HEMOGLOBIN A1C 5.9 % (4.5-6.2)
[2019-07-28] MEDS ORDERED: enoxaparin 40mg/0.4ml syringe SUBCUT SCH (13:29)
[2019-07-28] MEDS: enoxaparin 30mg/0.3ml syringe SUBCUT SCH ×2 (13:30→20:00)
--- NOTE | 2019-07-28 13:38 | NUR ---
DR CAMP IN TO [facility] PT. VERBAL ORDER FOR LOVENOX 70 MG SQ Q12HRS. ADMIN ORDERED. FAMILY AT BEDSIDE.
--- NOTE | 2019-07-28 13:50 | NUR ---
PAGE DR CASTRO FOR QUESTIONS ABOUT PT. RR IS 38, NO BREATHING TREATMENT HAS BEEN GIVEN, HX OF TAKING LASIX BUT HASNT TAKEN IT FOR A WEEK, COUGHING UP DARK SPUTUM AND NO ABX HAVE BEEN GIVEN. HX COPD. ALSO WHAT ABOUT AN ABG?
--- NOTE | 2019-07-28 14:04 | NUR ---
[facility]
--- NOTE | 2019-07-28 14:22 | NUR ---
SENT PAGE TO [facility] ASKING "PT HAS RESP RATE 33, COUGH DARK SPUTUM, D-DIMER 3.88, PULMONARY CONGESTION CXR, DO YOU WANT TO ORDER LASIX, RT TREATMENT, ABG OR TEST TO RULE OUT PE, PT RECENT HIP SURGERY 04/2019, PNA 2 WEEKS AGO, PAGED RUSU WITH THIS INFO HOSPITALIST HAS BEEN PAGED TWICE AND HAS NOT RESPONDED TO PAGE
--- NOTE | 2019-07-28 14:38 | NUR ---
PT FAMILY MEMBER STATES PT HAS NOT EATEN ALL DAY, HEART HEALTHY DIET ORDERED, FAXED STAT MEAL TRAY REQUEST TO [facility] [phone]
[2019-07-28] MEDS ORDERED: furosemide 20MG tablet PO PRN (17:00)
[2019-07-28] MEDS ORDERED: iohexol 350MG/ML 100ml bottle IV ONE (17:25)
--- NOTE | 2019-07-28 17:50 | NUR ---
Patient arrived on unit. Stable, A&Ox4, no s/sx of distress.
[2019-07-28 18:00] VITALS: BP 153/77
--- NOTE | 2019-07-28 18:15 | NUR ---
Patient in room MED 311. I have received report from MARCIA Casarez and had the opportunity to ask questions and assume patient care.
--- NOTE | 2019-07-28 18:20 | NUR ---
Problems reprioritized. Patient report given, questions answered & plan of care reviewed with MARCIA Minaya.
[2019-07-28] MEDS ORDERED: losartan 50mg tablet PO SCH (20:00)
[2019-07-28] MEDS ORDERED: aspirin 81mg tablet.DR PO SCH (20:00)
[2019-07-28] MEDS ORDERED: Melatonin 3mg tablet PO SCH (20:00)
[2019-07-28] MEDS: enoxaparin 40mg/0.4ml syringe SUBCUT SCH (20:00)
[2019-07-28 22:00] VITALS: BP 141/72
[2019-07-29 02:00] VITALS: BP 150/67
[2019-07-29 04:00] LABS: BASOPHILS # (AUTO) 0.1 X10'3 (0-0.2); BASOPHILS % (AUTO) 1.3 % (0-1); EOSINOPHILS # (AUTO) 0.2 X10'3 (0-0.9); EOSINOPHILS % (AUTO) 4.4 % (0-6); HEMATOCRIT 31.5 % (35.0-45.0); HEMOGLOBIN 10.4 g/dl (12.0-16.0); LYMPHOCYTES # (AUTO) 1.2 X10'3 (1.1-4.8); LYMPHOCYTES % (AUTO) 22.1 % (21-51); MEAN CORPUSCULAR HEMOGLOBIN 29.1 PG (27.0-31.0); MEAN CORPUSCULAR HGB CONC 32.9 g/dL (33.0-36.5); MEAN CORPUSCULAR VOLUME 88.4 FL (78-98); MONOCYTES # (AUTO) 0.4 X10'3 (0-0.9); MONOCYTES % (AUTO) 7.3 % (2-12); NEUTROPHILS # (AUTO) 3.7 X10'3 (1.8-7.7); NEUTROPHILS % (AUTO) 64.9 % (42-75); PLATELET COUNT 215 X10'3 (140-440); RED BLOOD COUNT 3.57 X10'6 (4.20-5.60); RED CELL DISTRIBUTION WIDTH 15.1 % (11.5-14.5); WHITE BLOOD COUNT 5.6 X10'3 (4.5-11.0)
[2019-07-29 04:11] LABS: ALBUMIN 2.9 G/DL (3.4-5.0); ANION GAP 5 (8-16); BLOOD UREA NITROGEN 9 MG/DL (7-18); BUN/CREATININE RATIO 10.7 (6.6-38.0); CALCIUM 10.7 MG/DL (8.5-10.1); CHLORIDE 108 MMOL/L (99-107); CHOL/HDL RATIO 4.4 (0.00-4.99); CHOLESTEROL 215 MG/DL (0-200); CREATININE 0.84 MG/DL (0.40-0.90); GLUCOSE 84 MG/DL (70-104); HDL CHOLESTEROL 49 MG/DL (35-60); LDL CHOLESTEROL 142 MG/DL (50-100); SODIUM 143 MMOL/L (135-145); TRIGLYCERIDES 104 MG/DL (20-135); eGFR 64 ML/MIN
[2019-07-29 06:35] VITALS: BP 127/63
--- NOTE | 2019-07-29 06:44 | NUR ---
Problems reprioritized. Patient report given, questions answered & plan of care reviewed with KatRN.
[2019-07-29] MEDS ORDERED: aspirin 81mg tablet.DR PO SCH (08:00)
[2019-07-29] MEDS ORDERED: multivitamins, therapeutics tablet PO SCH (08:00)
[2019-07-29] MEDS ORDERED: pramipexole 0.25mg tablet PO SCH (08:00)
[2019-07-29] MEDS: enoxaparin 30mg/0.3ml syringe SUBCUT SCH (09:14)
[2019-07-29] MEDS: enoxaparin 40mg/0.4ml syringe SUBCUT SCH (09:15)
[2019-07-29] MEDS ORDERED: FURO-150 PO (10:21)
[2019-07-29] MEDS ORDERED: NYSPWD TP (10:57)
== END 2019-07-29 12:20 | disposition home health service (06) | DRG 281 ==
LOC: ER 10:52 → ED HOLD 12:57 → EDBEDREQ 15:35 → CANBEDREQ 15:36 → MED 3N 18:08
PROVIDERS: ADMIT Internal Medicine; ATTEND Internal Medicine
PROC: B32T1ZZ Computerized Tomography (CT Scan) of Left Pulmonary Artery using Low Osmolar Contrast (ICD-10-PCS; principal; 2019-07-28)
PROC: B3201ZZ Computerized Tomography (CT Scan) of Thoracic Aorta using Low Osmolar Contrast (ICD-10-PCS; 2019-07-28)
PROC: B32S1ZZ Computerized Tomography (CT Scan) of Right Pulmonary Artery using Low Osmolar Contrast (ICD-10-PCS; 2019-07-28)
DX: I50.813 Acute on chronic right heart failure (principal); I21.4 Non-ST elevation (NSTEMI) myocardial infarction; J96.11 Chronic respiratory failure with hypoxia; I35.0 Nonrheumatic aortic (valve) stenosis; J44.9 Chronic obstructive pulmonary disease, unspecified; D64.9 Anemia, unspecified; E83.52 Hypercalcemia; F17.210 Nicotine dependence, cigarettes, uncomplicated; G25.81 Restless legs syndrome; R03.0 Elevated blood-pressure reading, without diagnosis of hypertension; M81.0 Age-related osteoporosis without current pathological fracture; Z79.82 Long term (current) use of aspirin; Z79.899 Other long term (current) drug therapy; Z86.73 Personal history of transient ischemic attack (TIA), and cerebral infarction without residual deficits; Z90.710 Acquired absence of both cervix and uterus; Z88.5 Allergy status to narcotic agent
CPT/HCPCS: 36415; 71045; 71275; 80048; 80053; 80061; 83036; 83880; 84484; 85025; 85379; 85610; 85730; 87081; 93005; 99285; G0378; J1650; Q9967

== ENCOUNTER 2019-10-09 15:04 | Emergency (ER) | payer MEDICARE, OTHER ==
[~2019-10-09] VITALS: Ht 165.1 cm; Wt 70.7 kg
[~2019-10-09 15:04] MED LIST changes: -AMOX-422 PO; -FURO20TA4 PO; +MULT-933 PO; +NYSPWD TP; -PRED20TA PO
[2019-10-09 15:51] LABS: BASOPHILS # (AUTO) 0.1 X10'3 (0-0.2); BASOPHILS % (AUTO) 1.3 % (0-1); EOSINOPHILS # (AUTO) 0.2 X10'3 (0-0.9); EOSINOPHILS % (AUTO) 2.7 % (0-6); HEMATOCRIT 33.5 % (35.0-45.0); HEMOGLOBIN 11.2 g/dl (12.0-16.0); LYMPHOCYTES # (AUTO) 1.5 X10'3 (1.1-4.8); LYMPHOCYTES % (AUTO) 19.8 % (21-51); MEAN CORPUSCULAR HEMOGLOBIN 29.6 PG (27.0-31.0); MEAN CORPUSCULAR HGB CONC 33.4 g/dL (33.0-36.5); MEAN CORPUSCULAR VOLUME 88.4 FL (78-98); MEAN PLATELET VOLUME 8.7 FL (7.4-10.4); MONOCYTES # (AUTO) 0.6 X10'3 (0-0.9); MONOCYTES % (AUTO) 7.5 % (2-12); NEUTROPHILS # (AUTO) 5.3 X10'3 (1.8-7.7); NEUTROPHILS % (AUTO) 68.7 % (42-75); PLATELET COUNT 228 X10'3 (140-440); RED BLOOD COUNT 3.79 X10'6 (4.20-5.60); RED CELL DISTRIBUTION WIDTH 15.8 % (11.5-14.5); WHITE BLOOD COUNT 7.6 X10'3 (4.5-11.0)
[2019-10-09 16:14] LABS: ALANINE AMINOTRANSFERASE 15 U/L (12-78); ALBUMIN 3.6 G/DL (3.4-5.0); ALBUMIN/GLOBULIN RATIO 0.9 (1.1-1.5); ALKALINE PHOSPHATASE 104 IU/L (46-116); ANION GAP 3 (8-16); ASPARTATE AMINO TRANSFERASE 16 U/L (10-37); BILIRUBIN,TOTAL 0.5 MG/DL (0.1-1.0); BLOOD UREA NITROGEN 22 MG/DL (7-18); BUN/CREATININE RATIO 22.9 (6.6-38.0); CALCIUM 11.4 MG/DL (8.5-10.1); CHLORIDE 105 MMOL/L (99-107); CREATININE 0.96 MG/DL (0.40-0.90); GLUCOSE 110 MG/DL (70-104); POTASSIUM 4.7 MMOL/L (3.5-5.1); SODIUM 140 MMOL/L (135-145); TOTAL CARBON DIOXIDE 31.9 MMOL/L (24-32); TOTAL PROTEIN 7.4 G/DL (6.4-8.2); eGFR 55 ML/MIN
[2019-10-09 16:23] LABS: CLARITY,URINE SLIGHTLY CLOUDY (Clear); COLOR,URINE YELLOW (Yellow); GLUCOSE, URINE NEGATIVE (Neg); KETONES,URINE NEGATIVE (Neg); LEUKOCYTE ESTERASE ,URINE TRACE (Neg); NITRITES, URINE POSITIVE (Neg); OCCULT BLOOD,URINE NEGATIVE (Neg); PH,URINE 6.5 (4.8-8.0); PROTEIN,URINE NEGATIVE (Neg); UROBILINOGEN,URINE 0.2 E.U/dL (0.2-1.0)
[2019-10-09 16:34] LABS: UA COLLECTION TYPE STRAIGHT CATH
[2019-10-09 16:36] LABS: BACTERIA,URINE 3+ /HPF (Neg); SQUAMOUS EPITHELIAL CELL,UR FEW /LPF (FEW)
[2019-10-09 16:37] LABS: RBC,URINE 0-2 /HPF (0-2); WBC CLUMPS,URINE FEW /HPF (NEGATIVE)
[2019-10-09 17:36] VITALS: BP 158/89
[2019-10-09] MEDS ORDERED: NITR100C6 PO (18:03)
[2019-10-09] MEDS ORDERED: nitrofuran/nitrofuran macrocrysal 100 MG capsule PO ONE (18:05)
--- NOTE | 2019-10-13 09:59 | NUR ---
REACHED EARLHERNESTOS DAUGHTER. [facility] [place] [facility]
--- NOTE | 2019-10-13 10:14 | NUR ---
RX CALLED TO [facility] IN [place] FOR CIPRO 500MG PO BID X 7 DAYS. DAUGHTER IS AWARE AND WILL SURG RN RX
== END 2019-10-09 18:17 | disposition home or self-care (01) ==
LOC: ER 15:05
DX: N39.0 Urinary tract infection, site not specified (principal); J44.9 Chronic obstructive pulmonary disease, unspecified; M81.0 Age-related osteoporosis without current pathological fracture; Z86.73 Personal history of transient ischemic attack (TIA), and cerebral infarction without residual deficits; Z98.890 Other specified postprocedural states; Z90.49 Acquired absence of other specified parts of digestive tract; Z88.5 Allergy status to narcotic agent; Z79.82 Long term (current) use of aspirin; Z79.899 Other long term (current) drug therapy
CPT/HCPCS: 36415; 80053; 81001; 85025; 87077; 87088; 87186; 99283